=== PATIENT | male | born 1950 | race Caucasian/White ===

== ENCOUNTER 2019-05-27 20:05 | Inpatient (IN) | payer MEDICARE, BC ==
[~2019-05-27] VITALS: Ht 185 cm; Wt 103.5 kg
[2019-05-27] MEDS ORDERED: RT-ALBUTEROL/IPRATROPIUM 3 ML (DUONEB) VIAL ONE (20:12)
[2019-05-27] MEDS ORDERED: methylPREDNISolone 125 MG (Solu-MEDROL) VIAL IV STA (20:12)
[2019-05-27] MEDS ORDERED: RT-ALBUTEROL SULF 2.5 MG/3 ML PRE-MIX VIAL ONE (20:12)
[2019-05-27] MEDS ORDERED: RT-ALBUTEROL SULF 2.5 MG/3 ML PRE-MIX VIAL INH STA (20:12)
[2019-05-27] MEDS ORDERED: NS IV 1000 ML 1,000 ML IV SCH (20:12)
[2019-05-27] MEDS ORDERED: RT-ALBUTEROL/IPRATROPIUM 3 ML (DUONEB) VIAL INH ONE (20:15)
--- NOTE | 2019-05-27 20:15 | ED Respiratory ---
General Stated Complaint: ASTHMA ATTACK Source: patient Exam Limitations: no limitations History of Present Illness Date Seen by Provider: May 27, 2019 Time Seen by Provider: 20:02 Initial Comments Patient presents to ER by private conveyance with chief complaint of 2 days grossly worsening shortness of breath. He has a history of asthma and has this evening been taking his albuterol treatments every 4 hours and then took a hot shower and still does not feel any better. He cannot catch his breath has wheezing but no stridor. He has had a cough that is productive of green phlegm. No fevers or chills. He's had exposure to several sick children recently as he is visiting from [place]. His PCP is Dr. Desir. He's having no nausea chest pain diarrhea dysuria. Modifying Factors: Improves With Albuterol Inhaler, Improves With Albuterol Neb ulizer, Improves With Other (hot shower) Allergies and Home Medications Allergies Coded Allergies: No Known Drug Allergies (Unverified , 05/27/19) Patient Home Medication List Home Medication List Reviewed: Yes Review of Systems Review of Systems Constitutional: No chills, No fever, No malaise EENTM: No hearing loss, No ear pain Respiratory: cough, phlegm, short of breath, wheezing Cardiovascular: No chest pain, No palpitations Gastrointestinal: No abdominal pain, No constipation, No diarrhea, No nausea Genitourinary: No discharge, No dysuria Musculoskeletal: No back pain, No joint pain All Other Systems Reviewed Negative Unless Noted: Yes Past Vdaqkoy-Jzgeio-Etivip Hx Patient Social History Alcohol Use: Denies Use Recreational Drug Use: No Smoking Status: Never a Smoker Physical Exam Vital Signs - First Documented 05/27/19 05/27/19 20:05 21:40 Temp 36.5 Pulse 119 Resp 20 B/P (MAP) 157/103 (121) Pulse Ox 94 O2 Delivery Room Air Capillary Refill : Height: '" Weight: lbs. oz. kg; BMI Method: General Appearance: WD/WN, mild distress Eyes: Bilateral Eye Normal Inspection, Bilateral Eye PERRL, Bilateral Eye EOMI HEENT: PERRL/EOMI, normal ENT inspection, TMs normal, pharynx normal Neck: non-tender, full range of motion, normal inspection Respiratory: chest non-tender, respiratory distress (mod), accessory muscle use (pursed lip breathing; mod distress; SpO2 94% on RA.), wheezing (audible), expiration (prolonged) Cardiovascular: normal peripheral pulses, regular rate, rhythm Gastrointestinal: normal bowel sounds, non tender, soft Neurologic/Psychiatric: alert, normal mood/affect, oriented x 3 Skin: normal color, warm/dry Progress/Results/Core Measures Suspected Sepsis SIRS Temperature: Pulse: Respiratory Rate: Laboratory Tests 05/27/19 20:10: White Blood Count 9.0 Blood Pressure / Mean: Laboratory Tests 05/27/19 20:10: Creatinine 1.23, Platelet Count 227, Total Bilirubin 0.5 Results/Orders Lab Results Laboratory Tests Test 05/27/19 20:10 05/27/19 20:50 Range/Units White Blood Count 9.0 4.3-11.0 10^3/uL Red Blood Count 5.29 4.35-5.85 10^6/uL Hemoglobin 15.2 13.3-17.7 G/DL Hematocrit 47 40-54 % Mean Corpuscular Volume 88 80-99 FL Mean Corpuscular Hemoglobin 29 25-34 PG Mean Corpuscular Hemoglobin Concent 33 32-36 G/DL Red Cell Distribution Width 13.7 10.0-14.5 % Platelet Count 227 130-400 10^3/uL Mean Platelet Volume 8.9 7.4-10.4 FL Neutrophils (%) (Auto) 68 42-75 % Lymphocytes (%) (Auto) 16 12-44 % Monocytes (%) (Auto) 12 0-12 % Eosinophils (%) (Auto) 2 0-10 % Basophils (%) (Auto) 1 0-10 % Neutrophils # (Auto) 6.1 1.8-7.8 X 10^3 Lymphocytes # (Auto) 1.5 1.0-4.0 X 10^3 Monocytes # (Auto) 1.1 H 0.0-1.0 X 10^3 Eosinophils # (Auto) 0.2 0.0-0.3 10^3/uL Basophils # (Auto) 0.1 0.0-0.1 10^3/uL Sodium Level 139 135-145 MMOL/L Potassium Level 3.8 3.6-5.0 MMOL/L Chloride Level 106 98-107 MMOL/L Carbon Dioxide Level 21 21-32 MMOL/L Anion Gap 12 5-14 MMOL/L Blood Urea Nitrogen 17 7-18 MG/DL Creatinine 1.23 0.60-1.30 MG/DL Estimat Glomerular Filtration Rate 59 BUN/Creatinine Ratio 14 Glucose Level 121 H 70-105 MG/DL Calcium Level 9.1 8.5-10.1 MG/DL Corrected Calcium 9.0 8.5-10.1 MG/DL Magnesium Level 1.9 1.6-2.4 MG/DL Total Bilirubin 0.5 0.1-1.0 MG/DL Aspartate Amino Transf (AST/SGOT) 29 5-34 U/L Alanine Aminotransferase (ALT/SGPT) 25 0-55 U/L Alkaline Phosphatase 69 40-136 U/L C-Reactive Protein 2.91 H <0.50 MG/DL Total Protein 6.6 6.4-8.2 GM/DL Albumin 4.1 3.2-4.5 GM/DL Blood Gas Puncture Site LEFT RADIAL Blood Gas Patient Temperature 36.3 Arterial Blood pH 7.47 H 7.37-7.43 Arterial Blood Partial Pressure CO2 32 L 35-45 MMHG Arterial Blood Partial Pressure O2 131 H 79-93 MMHG Arterial Blood HCO3 23 23-27 MMOL/L Arterial Blood Total CO2 24.3 21.0-31.0 MMOL/L Arterial Blood Oxygen Saturation 99 94-100 % Arterial Blood Base Excess 0.2 -2.5-2.5 MMOL/L Ed Test POSITIVE Blood Gas Ventilator Setting NO Blood Gas Inspired Oxygen 8 My Orders Orders - ROMENICOL Chest Pa/Lat (2 View) (05/27/19 20:09) Cbc With Automated Diff (05/27/19 20:09) Comprehensive Metabolic Panel (05/27/19 20:09) Crp Fs (05/27/19 20:09) Arterial Blood Gas (05/27/19 20:09) Ed Iv/Invasive Line Start (05/27/19 20:09) Ed Iv/Invasive Line Start (05/27/19 20:12) Ns Iv 1000 Ml (Sodium Chloride 0.9%) (05/27/19 20:12) Albuterol Pre-Mix Nebs (Rt) (Proventil (05/27/19 20:12) Albuterol/Ipra Inhalation Soln (Duoneb I (05/27/19 20:15) Methylprednisolone Sod Succ (Solu-Medrol (05/27/19 20:12) Svn Small Volume Nebulizer (05/27/19 20:12) Magnesium (05/27/19 20:12) Albuterol Pre-Mix Nebs (Rt) (Proventil (05/27/19 20:12) Albuterol/Ipra Inhalation Soln (Duoneb I (05/27/19 20:12) Medications Given in ED Current Medications Medications Dose Ordered Sig/Dakota Route Start Time Stop Time Status Last Admin Dose Admin Albuterol/ Ipratropium 3 ml ONCE ONCE INH 05/27/19 20:15 05/27/19 20:16 DC 05/27/19 20:16 3 ML Vital Signs/I&O 05/27/19 05/27/19 20:05 21:40 Temp 36.5 Pulse 119 110 Resp 20 B/P (MAP) 157/103 (121) 165/76 (105) Pulse Ox 94 97 O2 Delivery Room Air Room Air Capillary Refill : Progress Note #1: Time: 21:41 Progress Note He has received most of the hour-long breathing treatment and his heart rate is come down from the 120s to 105-110 range. He says he is feeling much improved. He is no longer having audible wheezes across the room. ABG demonstrated respiratory alkalosis although he is on 8 L oxygen from nebulizer and his PaO2 is sufficient. We gave him 125 mg of Solu-Medrol and obtain some basic labs which are thus far unremarkable. Two-view chest x-ray has been obtained. Progress Note #2: Time: 21:59 Progress Note After coming back from x-ray on room air for about 5 minutes his oxygen sats are about 90% with still increased worker breathing. Heart rate still around 120. Respiratory rate 24. We have discussed inpatient management with Vapotherm and he is agreed to this. Progress Note #3: Time: 22:30 Progress Note After his hour-long albuterol and concluded he started to feel wheezy again so gave him 2 g of magnesium and this helped significantly. At the time of transport he was on 2 L by nasal cannula running in the mid 90s and comfortable. Diagnostic Imaging Diagonstic Imaging: Xray Plain Films/CT/US/NM/MRI: chest (2v) Comments No acute infiltrate. No acute cardiopulmonary process. NAME: LINCOLN SAMPSON [facility] REC#: [id number] PT STATUS: REG ER : 1950 PHYSICIAN: NICOL PETER MD ADMIT DATE: 05/27/19/ER FS Draft POSDate of Exam:05/27/19 CHEST PA/LAT (2 VIEW) INDICATION: Reactive airway disease. EXAMINATION: PA and lateral chest. FINDINGS: Heart size and pulmonary vascularity are normal. Lungs are clear. There are no effusions or pneumothoraces. IMPRESSION: Negative chest. Dictated on workstation # [id number] Dict: 05/27/192143 Trans: 05/27/192147 [facility] [id number] Interpreted by: JOYCE PADRON MD Electronically signed by: Reviewed: Reviewed by Me Departure Communication (Admissions) Time/Spoke to Admitting Phy: 21:56 Discussed case lab imaging findings with Dr. De Leon. She agrees with step down on Vapotherm with 60 mg IV Medrol every 6 hours. Impression Primary Impression: Asthma exacerbation Qualified Codes: J45.901 - Unspecified asthma with (acute) exacerbation Additional Impressions: Acute respiratory distress Hypoxia Disposition: ADMITTED INPATIENT Condition: Stable Admissions Decision to Admit Reason: Admit from ER (General) Decision to Admit/Date: May 27, 2019 Time/Decision to Admit Time: 21:50 NICOL PETER May 27, 2019 20:15 POS
[2019-05-27 20:20] LABS: BASOPHILS % (AUTO) 1 % (0-10); EOSINOPHILS % (AUTO) 2 % (0-10); HEMATOCRIT 47 % (40-54); HEMOGLOBIN 15.2 G/DL (13.3-17.7); LYMPHOCYTES % (AUTO) 16 % (12-44); MEAN CORPUSCULAR HEMOGLOBIN 29 PG (25-34); MEAN CORPUSCULAR HGB CONC 33 G/DL (32-36); MEAN CORPUSCULAR VOLUME 88 FL (80-99); MEAN PLATELET VOLUME 8.9 FL (7.4-10.4); MONOCYTES % (AUTO) 12 % (0-12); NEUTROPHILS # (AUTO) 6.1 X 10^3 (1.8-7.8); NEUTROPHILS % (AUTO) 68 % (42-75); PLATELET COUNT 227 10^3/uL (130-400); RED CELL DISTRIBUTION WIDTH 13.7 % (10.0-14.5)
[2019-05-27 20:21] LABS: BASOPHILS # (AUTO) 0.1 10^3/uL (0.0-0.1); EOSINOPHILS # (AUTO) 0.2 10^3/uL (0.0-0.3); LYMPHOCYTES # (AUTO) 1.5 X 10^3 (1.0-4.0); MONOCYTES # (AUTO) 1.1 X 10^3 (0.0-1.0)
[2019-05-27 20:46] LABS: CALCIUM 9.1 MG/DL (8.5-10.1); CREATININE SERUM 1.23 MG/DL (0.60-1.30); MAGNESIUM 1.9 MG/DL (1.6-2.4); POTASSIUM 3.8 MMOL/L (3.6-5.0)
[2019-05-27 20:47] LABS: ALBUMIN 4.1 GM/DL (3.2-4.5); BILIRUBIN,TOTAL 0.5 MG/DL (0.1-1.0); TOTAL PROTEIN 6.6 GM/DL (6.4-8.2)
[2019-05-27 20:58] LABS: ABG BASE EXCESS 0.2 MMOL/L (-2.5-2.5); ABG OXYGEN SATURATION 99 % (94-100); ABG PCO2 32 MMHG (35-45); ABG PH 7.47 (7.37-7.43); ABG PO2 131 MMHG (79-93); ABG TCO2 24.3 MMOL/L (21.0-31.0); ALLENS TEST POSITIVE; PATIENT TEMP 36.3; VENTILATOR NO
[2019-05-27 20:59] LABS: INSPIRED O2 8
[2019-05-27 21:40] VITALS: BP 165/76
--- NOTE | 2019-05-27 21:48 | Diagnostic Imaging Report ---
INDICATION: Reactive airway disease. EXAMINATION: PA and lateral chest. FINDINGS: Heart size and pulmonary vascularity are normal. Lungs are clear. There are no effusions or pneumothoraces. IMPRESSION: Negative chest. Dictated by: Dictated on workstation # [id number]
[2019-05-27] MEDS: MAGNESIUM 1 GM/100 ML IVPB 100 ML IV SCH ×2 (22:29→23:49)
--- NOTE | 2019-05-27 23:25 | NUR ---
LINCOLN SAMPSON admitted to room CU12-1, with an admitting diagnosis of asthma exacerbation, on 05/27/19 from [place] via , accompanied by .LINCOLN SAMPSON introduced to surroundings, call light, bed controls, phone, TV, temperature control, lights, meal times, smoking policy, visitor policy, side rail policy, bathrooms and showers. Patient Rights given to patient in the handbook. LINCOLN SAMPSON verbalizes understanding that [facility] is not responsible for the loss or damage to any personal effects or valuables that are kept in the patients posession during their hospitalization. The following Patient Care Plans were discussed with the : Discharge Planning, ,, and . LINCOLN SAMPSON verbalizes understanding of Interdisciplinary Patient Education. Patient and/or family were informed about the Rapid Response Team and its purpose.
[2019-05-27 23:45] VITALS: BP 130/81
[2019-05-28] VITALS (12 sets, daily range): BP systolic 101–157; BP diastolic 55–103
[2019-05-28] MEDS ORDERED: IBUPROFEN 800 MG (MOTRIN) TAB PO PRN (02:15)
[2019-05-28] MEDS ORDERED: ACETAMINOPHEN 500 MG TAB (TYLENOL) PO PRN (02:15)
[2019-05-28] MEDS ORDERED: ONDANSETRON 4 MG/2 ML (SDV) Z0FRAN IV PRN (02:15)
[2019-05-28] MEDS ORDERED: ANTACID SUSP 30 ML UDC (MYLANTA) PO PRN (02:15)
[2019-05-28] MEDS ORDERED: methylPREDNISolone 125 MG (Solu-MEDROL) VIAL IV ONE (02:15)
[2019-05-28] MEDS ORDERED: methylPREDNISolone 125 MG (Solu-MEDROL) VIAL IV SCH (02:45)
[2019-05-28] MEDS: RT-ALBUTEROL/IPRATROPIUM 3 ML (DUONEB) VIAL INH SCH ×6 (03:11→22:42)
[2019-05-28 03:30] LABS: BASOPHILS % (AUTO) 0 % (0-10); EOSINOPHILS % (AUTO) 0 % (0-10); HEMATOCRIT 43 % (40-54); HEMOGLOBIN 14.4 G/DL (13.3-17.7); LYMPHOCYTES # (AUTO) 0.4 X 10^3 (1.0-4.0); LYMPHOCYTES % (AUTO) 5 % (12-44); MEAN CORPUSCULAR HEMOGLOBIN 29 PG (25-34); MEAN CORPUSCULAR HGB CONC 33 G/DL (32-36); MEAN CORPUSCULAR VOLUME 87 FL (80-99); MEAN PLATELET VOLUME 9.2 FL (7.4-10.4); MONOCYTES # (AUTO) 0.2 X 10^3 (0.0-1.0); MONOCYTES % (AUTO) 2 % (0-12); NEUTROPHILS # (AUTO) 7.2 X 10^3 (1.8-7.8); NEUTROPHILS % (AUTO) 93 % (42-75); PLATELET COUNT 191 10^3/uL (130-400); RED CELL DISTRIBUTION WIDTH 14.2 % (10.0-14.5); WHITE BLOOD COUNT 7.8 10^3/uL (4.3-11.0)
[2019-05-28 03:58] LABS: ALANINE AMINOTRANSFERASE 25 U/L (0-55); ALKALINE PHOSPHATASE 50 U/L (40-136); BILIRUBIN,TOTAL 0.6 MG/DL (0.1-1.0); BUN/CREATININE RATIO 14; CALCIUM 8.8 MG/DL (8.5-10.1); CARBON DIOXIDE 19 MMOL/L (21-32); CHLORIDE 107 MMOL/L (98-107); CREATININE SERUM 1.03 MG/DL (0.60-1.30); GFR ESTIMATED > 60; GLUCOSE 172 MG/DL (70-105); SODIUM 138 MMOL/L (135-145); TOTAL PROTEIN 6.3 GM/DL (6.4-8.2)
[2019-05-28] MEDS ORDERED: RT-ALBUTEROL/IPRATROPIUM 3 ML (DUONEB) VIAL INH PRN (04:00)
[2019-05-28 04:18] LABS: LYMPHOCYTES % (MANUAL) 5 %; MONOCYTES % (MANUAL) 3 %; NEUTROPHILS % (MANUAL) 92 %
--- NOTE | 2019-05-28 05:15 | Pulmonary Consultation ---
History of Present Illness History of Present Illness Date Seen by Provider: May 28, 2019 Time Seen by Provider: 06:54 Date of Admission History of Present Illness 69yo with hx of asthma presented to ED secondary to worsening SOB and wheezing over the last 2 days. Pt states despite taking SVNs with albuterol Q4 at home he continue to have worsening SOB. He has also had spc of green sputum. Denies CP/abd pain. No n/v/d. I am consulted for pulmonary/ICU management. Allergies and Home Medications Allergies Coded Allergies: No Known Drug Allergies (Unverified , 05/27/19) Past Bqftbdq-Drupns-Afttae Hx Patient Social History Alcohol Use: Denies Use Recreational Drug Use: No Smoking Status: Never a Smoker 2nd Hand Smoke Exposure: No Recent Foreign Travel: No Contact w/Someone Who Travel: No Recent Infectious Disease Expo: No Recent Hopitalizations: No Physical Abuse: No Sexual Abuse: No Mistreated: No Immunizations Up To Date Date of Pneumonia Vaccine: May 24, 2019 Past Medical History Surgeries: Yes Tonsillectomy Respiratory: Yes Asthma Cardiac: No Neurological: No Genitourinary: No Gastrointestinal: No Musculoskeletal: No Endocrine: No HEENT: No Cancer: No Psychosocial: No Integumentary: No Blood Disorders: No Review of Systems Time Seen by Provider: 07:01 Constitutional: Weakness, Malaise; No: Fever, Chills, Sweats, Other Eyes: No: Pain, Vision change, Conjunctivae inflammation, Eyelid inflammation, Other, Redness ENT: Nose congestion; No: Ear pain, Ear discharge, Nose pain, Nose discharge, Mouth pain, Mouth swelling, Throat pain, Throat swelling, Other Respiratory: Cough, Shortness of breath, SOB with excertion, Wheezing, Sputum Cardiovascular: Palpitations, Paroxysmal Noc. Dyspnea, Lt Headedness; No: Chest Pain, Orthopnea, Edema Gastrointestinal: No: Nausea, Vomiting Sepsis Event Evaluation Height, Weight, BMI Height: '" Weight: lbs. oz. kg; 29.94 BMI Method: Exam Exam Vital Signs Date Time Temp Pulse Resp B/P (MAP) Pulse Ox O2 Delivery O2 Flow Rate FiO2 05/28/19 04:00 96 Nasal Cannula 1.50 96 05/28/19 04:00 36.5 05/28/19 04:00 93 21 117/55 (75) 95 Nasal Cannula 1.50 05/28/19 03:12 96 Nasal Cannula 1.50 05/28/19 03:00 93 28 101/70 (80) 93 Nasal Cannula 1.50 05/28/19 02:00 89 21 110/69 (83) 94 Nasal Cannula 1.50 05/28/19 01:31 36.9 106 12 107/61 96 Nasal Cannula 1.50 05/28/19 01:23 97 Nasal Cannula 1.50 05/28/19 01:20 36.5 119 94 05/28/19 01:00 86 05/28/19 01:00 83 21 104/55 (71) 92 Nasal Cannula 1.50 05/28/19 00:00 107 27 107/61 (76) 96 Nasal Cannula 1.50 05/27/19 23:45 36.9 105 22 130/81 (97) 94 Nasal Cannula 1.50 05/27/19 23:38 106 05/27/19 23:38 106 05/27/19 22:42 117 20 131/60 96 Nasal Cannula 2.00 05/27/19 22:10 96 Nasal Cannula 2.00 96 05/27/19 21:40 110 20 165/76 (105) 97 Room Air 05/27/19 20:05 36.5 119 157/103 (121) 94 Room Air I & O 05/28/19 07:00 Intake Total 1100 ml Balance 1100 ml Height & Weight Height: '" Weight: lbs. oz. kg; 29.94 BMI Method: General Appearance: No Apparent Distress, WD/WN, Anxious HEENT: PERRL/EOMI, Pharynx Normal Neck: Full Range of Motion, Non Tender, Supple Respiratory: No Accessory Muscle Use, No Respiratory Distress, Decreased Breath Sounds, Wheezing Cardiovascular: Regular Rate, Rhythm, No Edema Capillary Refill: Less Than 3 Seconds Gastrointestinal: normal bowel sounds, non tender, soft Extremity: Normal Capillary Refill, Normal Inspection, No Pedal Edema Neurologic/Psychiatric: Alert, Oriented x3 Skin: Normal Color, Warm/Dry Lymphatic: No Adenopathy Results Lab Laboratory Tests 05/27/19 20:10 05/28/19 03:15 Assessment/Plan Assessment/Plan Acute respiratory distress AsthmaAE -Solumedrol -- change to Solumedrol 40 Q6 `-Duonebs Q 4 and advair -Oxygen -S/P mag replacement yesterday -Repeat mg and phos -Start IVF Allergic rhinitis -Start Sandra Shane JASON M DO May 28, 2019 05:15 POS
[2019-05-28] MEDS ORDERED: LACTATED RINGERS 1,000 ML IV ONE (07:08)
[2019-05-28 07:27] LABS: MAGNESIUM 2.2 MG/DL (1.6-2.4)
--- NOTE | 2019-05-28 07:42 | Diagnostic Imaging Report ---
CHEST 1 VIEW, AP/PA ONLY Indication: Acute respiratory distress Comparison: 05/27/2019 Findings: No focal airspace disease in the visualized lungs. Please note that the posterior lower lobes are poorly evaluated by portable radiography. No pleural effusion or pneumothorax. Normal cardiomediastinal silhouette. Impression: 1. No acute cardiopulmonary process by portable radiography. Dictated by: Dictated on workstation # [id number]
[2019-05-28] MEDS: methylPREDNISolone 40 MG/ML (Solu-MEDROL) VIAL IV SCH ×3 (07:54→20:28)
[2019-05-28] MEDS: LORATADINE (CLARITIN) 10 MG TAB PO SCH (07:54)
[2019-05-28] MEDS: LACTATED RINGERS 1,000 ML IV SCH ×2 (07:55→15:50)
[2019-05-28] MEDS ORDERED: ATOR10TA66 PO (08:42)
[2019-05-28] MEDS ORDERED: BUDE10.2 INH (08:42)
[2019-05-28] MEDS ORDERED: LANS30CA PO (08:42)
[2019-05-28] MEDS ORDERED: MONT10TA24 PO (08:42)
[2019-05-28] MEDS ORDERED: ALBU6.7H8 INH (08:42)
[2019-05-28] MEDS ORDERED: IBUP-30 PO (08:43)
[2019-05-28] MEDS ORDERED: IPRA3AMP31 NEB (08:47)
--- NOTE | 2019-05-28 08:56 | NUR ---
SPOKE WITH THE PATIENT ABOUT HIS MEDICATIONS. HE LISTED WHAT HE IS TAKING AND I COMPARED IT WITH THE EXT MED HX. I CALLED [facility] TO VERIFY THE LAST FILL DATES SHOWN ON THE EXT MED HX ARE ACCURATE. THEY ARE, HE HAS NOT FILLED HIS MEDS SINCE 12-11-18 FOR 90 DAYS. HIS INHALERS WERE LAST FILLED IN SEPTEMBER HOWEVER HE REPORTS HE ONLY USES THEM NEEDED. I NOTED THE PAST DUE FILL DATES ON THE MED REC. THE LANSOPRAZOLE IS WRITTEN TO TAKE 2 DAILY HOWEVER HE ONLY TAKES 1 DAILY. HE ALSO STATES HE TAKES IBU 4 TABS OTC PRN. HE STATES HE HAS A NEBULIZER AT HOME HE USES PRN, HE FILLED THIS AT [facility]. I CALLED THEM AND VERIFIED THEY FILLED DUONEB Q4H PRN 07-24-17.
[2019-05-28] MEDS ORDERED: PANTOPRAZOLE 20 MG TABLET (PROTONIX) PO SCH (09:00)
--- NOTE | 2019-05-28 14:36 | History & Physical-Hospitalist ---
History of Present Illness HPI/Chief Complaint John Lara is a 69yoM with PMH asthma who presented with shortness of breath. He reports that he has had difficulty breathing for a few days. He also had congestion and cough. He has been exposed to several children with respiratory illnesses recently. He tried taking nebulizers at home and improved, but then worsened. He has not been on antibiotics recently. He denies fevers, chills, chest pain, nausea, vomiting, diarrhea, abdominal pain, dysuria. Source: patient Exam Limitations: no limitations Date Seen 05/28/19 Time Seen by a Provider: 09:50 Attending Physician Yelena De Leon MD PCP No,Local Physician Referring Physician Date of Admission May 27, 2019 at 22:00 Home Medications & Allergies Home Medications Reviewed patient Home Medication Reconciliation performed by pharmacy medication reconciliations pm technician and/or nursing. Patients Allergies have been reviewed. Allergies Allergies Coded Allergies No Known Drug Allergies (Hsvilsmlgv44/24/19) Past Dzbaavk-Hdxnjp-Cbubpk Hx Past Med/Social Hx: Reviewed Nursing Past Med/Soc Hx Patient Social History Alcohol Use: Denies Use Recreational Drug Use: No Smoking Status: Never a Smoker 2nd Hand Smoke Exposure: No Recent Foreign Travel: No Contact w/other who traveled: No Recent Hopitalizations: No Recent Infectious Disease Expo: No Immunizations Up To Date Date of Pneumonia Vaccine: May 24, 2019 Past Medical History Surgeries: Tonsillectomy History of Blood Disorders: No Review of Systems Constitutional: no symptoms reported EENTM: no symptoms reported Respiratory: cough, short of breath Cardiovascular: no symptoms reported Gastrointestinal: no symptoms reported Genitourinary: no symptoms reported Musculoskeletal: no symptoms reported Skin: no symptoms reported Psychiatric/Neurological: No Symptoms Reported Physical Exam Physical Exam Vital Signs Vital Signs - First Documented 05/27/19 05/27/19 05/27/19 20:05 21:40 22:10 Temp 36.5 Pulse 119 Resp 20 B/P (MAP) 157/103 (121) Pulse Ox 94 O2 Delivery Room Air O2 Flow Rate 2.00 FiO2 96 Capillary Refill : Less Than 3 Seconds Height, Weight, BMI Height: '" Weight: lbs. oz. kg; 29.94 BMI Method: General Appearance: No Apparent Distress, WD/WN HEENT: PERRL/EOMI, Pharynx Normal Neck: Normal Inspection, Supple Respiratory: No Accessory Muscle Use, No Respiratory Distress, Wheezing Cardiovascular: Regular Rate, Rhythm, No Edema, No Murmur Gastrointestinal: Normal Bowel Sounds, Non Tender, Soft Extremity: Normal Inspection, Non Tender, No Pedal Edema Neurologic/Psychiatric: Alert, Oriented x3, No Motor/Sensory Deficits, Normal Mood/Affect Skin: Normal Color, Warm/Dry Lymphatic: No Adenopathy Results Results/Procedures Labs Laboratory Tests 05/27/19 20:10 05/28/19 03:15 Patient resulted labs reviewed. Imaging: Reviewed Imaging Report Assessment/Plan Admission Diagnosis Asthma exacerbation Admission Status: Inpatient Order (span 2 midnights) Reason for Inpatient Admission: Asthma exacerbation requiring steroids and breathing treatments Assessment and Plan Asthma exacerbation -Chest xray negative -Afebrile, labs relatively normal -Breathing well on room air this morning -MAT protocol -Continue steroids -Pulmonology following Seasonal allergies -Continue home meds HLD -Continue statin DVT Prophylaxis: Lovenox Diagnosis/Problems Diagnosis/Problems (1) Asthma exacerbation Status: Acute Qualifiers: Asthma severity: unspecified severity Asthma persistence: unspecified Qualified Codes: J45.901 - Unspecified asthma with (acute) exacerbation Clinical Quality Measures DVT/VTE Risk/Contraindication: Risk Factor Score Per Nursin RFS Level Per Nursing on Admit: 4+=Very High DALY CHANEL MD May 28, 2019 14:36 POS
[2019-05-28] MEDS ORDERED: ENOXAPARIN 40 MG/0.4 ML (LOVENOX) SYR SC SCH (15:00)
[2019-05-28] MEDS: RT-ADVAIR HFA 115/21 MCG PER PUFF IH SCH ×2 (15:33→19:10)
[2019-05-28] MEDS ORDERED: RT-ADVAIR HFA 115/21 MCG PER PUFF IH PRN (20:00)
[2019-05-28] MEDS ORDERED: MONTELUKAST 10 MG (SINGULAIR) TAB PO SCH ×2 (21:00)
[2019-05-29 00:35] VITALS: BP 132/71
[2019-05-29] MEDS: LACTATED RINGERS 1,000 ML IV SCH (00:53)
[2019-05-29] MEDS: RT-ALBUTEROL/IPRATROPIUM 3 ML (DUONEB) VIAL INH SCH ×2 (02:45→07:18)
[2019-05-29] MEDS: methylPREDNISolone 40 MG/ML (Solu-MEDROL) VIAL IV SCH ×2 (03:02→08:23)
[2019-05-29 04:00] VITALS: BP 143/82
[2019-05-29] MEDS: RT-ADVAIR HFA 115/21 MCG PER PUFF IH SCH (07:18)
[2019-05-29 08:00] VITALS: BP 158/75
[2019-05-29 08:13] VITALS: BP 143/82
[2019-05-29] MEDS: LORATADINE (CLARITIN) 10 MG TAB PO SCH (08:23)
[2019-05-29] MEDS ORDERED: PANTOPRAZOLE 40 MG (PROTONIX) TAB PO SCH (09:00)
[2019-05-29] MEDS ORDERED: IPRA3AMP31 NEB (10:26)
[2019-05-29] MEDS ORDERED: ALBU6.7H8 INH (10:26)
[2019-05-29] MEDS ORDERED: PRED10TA22 PO (10:26)
[2019-05-29 11:55] VITALS: BP 143/82
--- NOTE | 2019-05-29 11:56 | Discharge Summary ---
Discharge Summary Hospital Course Problems/Dx: (1) Asthma exacerbation Status: Acute Qualifiers: Qualified Codes: J45.901 - Unspecified asthma with (acute) exacerbation Hospital Course Date of Admission: May 27, 2019 at 22:00 Admission Diagnosis : Asthma exacerbation Family Physician/Provider: MarjorieLocal Physician Date of Discharge: 05/29/19 Discharge Diagnosis: Asthma exacerbation Hospital Course: John Lara is a 69yoM with PMH asthma and seasonal allergies who presented with dyspnea and wheezing and was admitted for asthma exacerbation. He was treated with nebulizers and steroids and improved quickly. He was given a rapid steroid taper on discharge. He will follow up with Dr. Lu in about two weeks. Labs and Pending Lab Test: Home Meds Active Prednisone 10 Mg Tab.ds.pk 10 Mg PO DAILY Take 6 tabs(60mg)daily,decrease by 1 tab(10MG)daily. Iprat-Albut 0.5-3(2.5) mg/3 ml (Ipratropium/Albuterol Sulfate) 3 Ml Ampul.neb 3 Ml NEB Q4H PRN 30 Days Proventil Hfa (Albuterol Sulfate) 6.7 Gm Hfa.aer.ad 2 Puff INH Q4H PRN 30 Days Reported Advil (Ibuprofen) 200 Mg Tablet 800 Mg PO Q8H PRN Symbicort 160-4.5 Mcg Inhaler (Budesonide/Formoterol Fumarate) 10.2 Gm Hfa.aer.ad 2 Puff INH BID PRN LAST FILLED #3 09-21-18 Lansoprazole 30 Mg Capsule.dr 30 Mg PO DAILY Montelukast Sodium 10 Mg Tablet 10 Mg PO HS LAST FILLED #90 12-11-18 Atorvastatin Calcium 10 Mg Tablet 10 Mg PO HS LAST FILLED #90 12-11-18 Assessment/Pt Instructions Take medications as prescribed. Follow up with Dr. Lu. Return with worsening shortness of breath or if you feel like you are getting worse. Discharge Planning: <30 minutes discharge planning Discharge Instructions Discharge Diet: No Restrictions Activity as Tolerated: Yes Discharge Physical Examination Vital Signs Vital Signs Date Time Temp Pulse Resp B/P (MAP) Pulse Ox O2 Delivery O2 Flow Rate FiO2 05/29/19 08:30 Room Air 05/29/19 08:13 36.5 99 92 21 05/29/19 04:00 18 143/82 (102) 05/28/19 08:00 1.50 General Appearance: No Apparent Distress, WD/WN HEENT: PERRL/EOMI, Pharynx Normal Respiratory: Lungs Clear, Normal Breath Sounds, No Respiratory Distress Cardiovascular: Regular Rate, Rhythm, No Edema, No Murmur Gastrointestinal: Normal Bowel Sounds, Non Tender, Soft Extremity: Normal Inspection, Non Tender, No Pedal Edema Skin: Normal Color, Warm/Dry Neurologic/Psychiatric: Alert, Oriented x3, No Motor/Sensory Deficits, Normal Mood/Affect Allergies: Coded Allergies: No Known Drug Allergies (Unverified , 05/27/19) Discharge Summary Date of Admission May 27, 2019 at 22:00 Date of Discharge Discharge Date: May 29, 2019 Discharge Time: 11:55 Admission Diagnosis Asthma exacerbation Consults/Procedures Consulations Pulmonology Discharge Diagnosis Asthma exacerbation (1) Asthma exacerbation Status: Acute Qualifiers: Qualified Codes: J45.901 - Unspecified asthma with (acute) exacerbation Clinical Quality Measures DVT/VTE Risk/Contraindication: Risk Factor Score Per Nursin RFS Level Per Nursing on Admit: 4+=Very High DALY CHANEL MD May 29, 2019 11:56 POS
[2019-05-29 12:00] VITALS: BP 136/72
[2019-05-29] MEDS ORDERED: RT-ALBUTEROL/IPRATROPIUM 3 ML (DUONEB) VIAL INH SCH (21:00)
--- NOTE | 2019-05-30 10:07 | Physician Query Clarification ---
PQ-Conflicting Diagnosis Admission/Discharge Admission Date: May 27, 2019 at 22:00 Discharge Date: May 29, 2019 at 11:55 The medical record reflects the following clinical scenario: History/Risk Factors: Asthma attack Clinical Findings: ABG demonstrated respiratory alkalosis although he is on 8 L oxygen from nebulizer and his PaO2 is sufficient. Treatment: 125 mg IV Solu-medrol Question: Do you agree with the impression of the respiratory alkalosis per Dr. Nelson. respiratory alkalosis is only mentioned in ER PN#1 and not listed as a diagnosis anywhere in the record. Please document a response in Progress Note or Discharge Summary. 1. Yes 2. No 3. Other, with explanation of clinical findings 4. Clinically undetermined, no explanation for clinical findings. PHYSICIAN RESPONSE Do you agree w/Consulting Dx?: Yes Please remember a lack of response to the above will prompt a phone page by CDI/Coding staff. In responding to this query, please exercise your independent professional judgment. The purpose of this communication is to more accurately reflect the complexity of your patients condition. The fact that a question is asked does not imply that any particular answer is desired or expected. Thank you for your timely response to this clarification. Requestors name: Lavelle THIS PHYSICIAN QUERY FORM IS A PERMANENT PART OF THE MEDICAL RECORD LVAELLE SANON May 30, 2019 10:07 DALY IRIZARRY MD May 30, 2019 14:00 POS
== END 2019-05-29 11:55 | disposition home or self-care (01) | DRG 202 ==
LOC: ER FS 20:10 → ICU 22:00 → 4TH 05-28 08:50
PROVIDERS: ADMIT Family Medicine; ATTEND Family Medicine
DX: J45.901 Unspecified asthma with (acute) exacerbation (principal); R06.03 Acute respiratory distress; E87.3 Alkalosis; R09.02 Hypoxemia; E78.5 Hyperlipidemia, unspecified
CPT/HCPCS: 36415; 71045; 71046; 80053; 82805; 83735; 84100; 85007; 85025; 85027; 86141; 94640; 94664; 96361; 96365; 96375

== ENCOUNTER → 2019-06-29 | Outpatient (CLI) | payer MEDICARE, BC ==
[~2019-06-29] MED LIST: ALBU6.7H8 INH; ATOR10TA66 PO; BUDE10.2 INH; IBUP-30 PO; IPRA3AMP31 NEB; LANS30CA PO; MONT10TA24 PO; PRED10TA22 PO; RT-ALBUTEROL SULF 2.5 MG/3 ML PRE-MIX VIAL INH ONE
== END ==
LOC: RT 09:12
PROVIDERS: ATTEND Nurse Practitioner Family
DX: J45.909 Unspecified asthma, uncomplicated (principal)
CPT/HCPCS: 94060; 94640; 94726; 94729

== ENCOUNTER 2019-07-17 11:59 | Outpatient (CLI) | payer MEDICARE, BC ==
[~2019-07-17 11:59] MED LIST changes: -RT-ALBUTEROL SULF 2.5 MG/3 ML PRE-MIX VIAL INH ONE
== END 2019-07-17 12:38 | disposition home or self-care (01) ==
LOC: SLEEP 11:59
PROVIDERS: ATTEND Nurse Practitioner Family
DX: G47.33 Obstructive sleep apnea (adult) (pediatric) (principal); G47.10 Hypersomnia, unspecified

== ENCOUNTER 2019-08-23 20:47 | Outpatient (CLI) | payer MEDICARE, BC ==
[~2019-08-23 20:47] MED LIST changes: -MONT10TA24 PO; +MONT10TA26 PO
== END 2019-08-24 06:30 | disposition home or self-care (01) ==
LOC: SLEEP 20:47
PROVIDERS: ATTEND Nurse Practitioner Family
DX: G47.33 Obstructive sleep apnea (adult) (pediatric) (principal); J45.909 Unspecified asthma, uncomplicated
CPT/HCPCS: 95811

== ENCOUNTER → 2020-02-14 | Outpatient (CLI) | payer MEDICARE, BC ==
--- NOTE | 2020-02-14 10:06 | Diagnostic Imaging Report ---
PA and lateral chest at 953 hours. INDICATION: Shortness of breath. FINDINGS: The heart size is within normal limits and stable when compared to 05/28/2019. The lungs are clear. There is no sign of failure, pneumonia or pleural effusion. The mediastinum is not widened. The osseous structures are intact. There is a healed displaced fracture of the right 4th rib. This was also present on the prior exam. IMPRESSION: There is no evidence for active disease. Dictated by: Dictated on workstation # [id number]
== END ==
LOC: LAB FS 09:54
PROVIDERS: ATTEND Nurse Practitioner Family
DX: J45.909 Unspecified asthma, uncomplicated (principal); G47.33 Obstructive sleep apnea (adult) (pediatric); Z20.828 Contact with and (suspected) exposure to other viral communicable diseases
CPT/HCPCS: 71046; U0002; 87635